=== PATIENT | male | born 1970 | race Caucasian/White ===

== ENCOUNTER 2017-12-12 08:05 | Observation (INO) | payer MEDICAID ==
[2017-12-12] MEDS: SOD CHLORIDE 0.9% 1,000 ML IV (08:58)
[2017-12-12] MEDS: NITROGLYCERIN (SL) 0.4 MG TAB SL (08:58)
[2017-12-12] MEDS: ASPIRIN 325 MG TAB PO (08:58)
[2017-12-12 09:14] LABS: ADD MAN DIFF? NO
[2017-12-12 09:16] LABS: WHITE BLOOD COUNT 7.1 10^3/ul (4.8-10.8)
[2017-12-12 09:16] LABS: BASOPHILS % 0.6 % (0.0-2.0); EOSINOPHILS % 0.4 % (0.0-7.0); HEMATOCRIT 44.8 % (42.0-52.0); HEMOGLOBIN 15.9 g/dl (14.0-18.0); LYMPHOCYTES # 2.1 10^3/ul (0.8-2.9); LYMPHOCYTES % 28.9 % (15.0-51.0); MEAN CORPUSCULAR HEMOGLOBIN 30.9 pg (29.0-33.0); MEAN CORPUSCULAR HGB CONC 35.5 g/dl (32.0-37.0); MEAN CORPUSCULAR VOLUME 87.2 fl (82.0-101.0); MONOCYTE # 0.5 10^3/ul (0.3-0.9); MONOCYTES % 6.5 % (0.0-11.0); NEUTROPHIL # 4.5 10^3/ul (1.6-7.5); NEUTROPHILS % 63.3 % (39.0-77.0); PLATELET COUNT 309 10^3/UL (140-415); RED BLOOD COUNT 5.14 10^6/ul (4.70-6.10); RED CELL DISTRIBUTION WIDTH 12.4 % (11.5-14.5)
[2017-12-12 09:38] LABS: ANION GAP 19 (8-16); BLOOD UREA NITROGEN 12 mg/dl (7-20); CARBON DIOXIDE 21 mmol/L (21-31); CHLORIDE 107 mmol/L (97-110); CREATININE 0.72 mg/dl (0.61-1.24); GLUCOSE 99 mg/dl (70-220); POTASSIUM 3.4 mmol/L (3.5-5.1); SODIUM 144 mmol/L (135-144)
[2017-12-12 09:49] LABS: TROPONIN-I 0.108 ng/ml (0.000-0.120)
[2017-12-12] MEDS ORDERED: ACETAMINOPHEN 325 MG TAB PO (12:00)
[2017-12-12] MEDS ORDERED: ONDANSETRON 4 MG INJ IV (12:00)
[2017-12-12 12:54] LABS: BARBITURATES Negative (NEGATIVE); BENZODIAZEPINES Negative (NEGATIVE); CANNABINOIDS Negative (NEGATIVE); COCAINE Negative (NEGATIVE); OPIATES Negative (NEGATIVE)
[2017-12-12 13:05] LABS: AMPHETAMINE/METHAMPHETAMINE POSITIVE (NEGATIVE)
[2017-12-12] MEDS ORDERED: NACL 0.9% 3 ML SYG IV (15:00)
[2017-12-12] MEDS ORDERED: HEPARIN 1000 UNITS/ML 10 ML INJ IV (15:00)
[2017-12-12 15:16] LABS: CREATINE KINASE 152 IU/L (23-200)
[2017-12-12 15:25] LABS: ADD MAN DIFF? NO
[2017-12-12 15:30] LABS: BASOPHILS % 0.4 % (0.0-2.0); EOSINOPHILS % 0.5 % (0.0-7.0); HEMATOCRIT 43.9 % (42.0-52.0); HEMOGLOBIN 15.3 g/dl (14.0-18.0); LYMPHOCYTES # 2.6 10^3/ul (0.8-2.9); LYMPHOCYTES % 33.1 % (15.0-51.0); MEAN CORPUSCULAR HEMOGLOBIN 30.9 pg (29.0-33.0); MEAN CORPUSCULAR HGB CONC 34.9 g/dl (32.0-37.0); MEAN CORPUSCULAR VOLUME 88.7 fl (82.0-101.0); MEAN PLATELET VOLUME 9.6 fl (7.4-10.4); MONOCYTE # 0.5 10^3/ul (0.3-0.9); MONOCYTES % 6.4 % (0.0-11.0); NEUTROPHIL # 4.7 10^3/ul (1.6-7.5); NEUTROPHILS % 59.5 % (39.0-77.0); PLATELET COUNT 272 10^3/UL (140-415); RED BLOOD COUNT 4.95 10^6/ul (4.70-6.10); RED CELL DISTRIBUTION WIDTH 12.6 % (11.5-14.5)
[2017-12-12 15:49] LABS: PROTIME 13.3 Sec (11.9-14.9)
[2017-12-12] MEDS: POTASSIUM CHLORIDE (SR) 20 MEQ TAB PO (15:50)
[2017-12-12] MEDS: METOPROLOL 25 MG TAB PO ×2 (15:53→20:20)
[2017-12-12 16:27] LABS: CREATINE KINASE 115 IU/L (23-200)
[2017-12-12 16:38] LABS: CK INDEX 0.9; CK-MB 1.03 ng/ml (0.0-2.4); TROPONIN-I 0.088 ng/ml (0.000-0.120)
[2017-12-12] MEDS: HEPARIN 1000 UNITS/ML 10 ML INJ IV (16:53)
[2017-12-12] MEDS: HEPARIN 25000 UNITS/250 ML 250 ML IV (16:55)
[2017-12-12] MEDS ORDERED: NITROGLYCERIN 0.3 MG/HR PATCH TRANSDERM (19:00)
[2017-12-12] MEDS: ATORVASTATIN 80 MG TAB PO (20:20)
[2017-12-12] MEDS ORDERED: NITROGLYCERIN 0.2 MG/HR PATCH TRANSDERM (20:36)
[2017-12-12] MEDS ORDERED: NITROGLYCERIN 0.1 MG/HR PATCH TRANSDERM (20:39)
[2017-12-12 21:40] LABS: CREATINE KINASE 115 IU/L (23-200)
[2017-12-12] MEDS: NITROGLYCERIN 0.1 MG/HR PATCH TRANSDERM (21:47)
[2017-12-12 21:51] LABS: CK INDEX 0.7; CK-MB 0.77 ng/ml (0.0-2.4); TROPONIN-I 0.037 ng/ml (0.000-0.120)
[2017-12-12 23:49] LABS: PARTIAL THROMBOPLASTIN TIME 43.1 Sec (25.0-35.0)
[2017-12-13] MEDS: HEPARIN 25000 UNITS/250 ML 250 ML IV ×2 (00:55→08:33)
[2017-12-13] MEDS: HEPARIN 1000 UNITS/ML 10 ML INJ IV (00:56)
[2017-12-13 07:29] LABS: ADD MAN DIFF? NO
[2017-12-13 07:32] LABS: WHITE BLOOD COUNT 8.8 10^3/ul (4.8-10.8)
[2017-12-13 07:32] LABS: BASOPHILS % 0.3 % (0.0-2.0); EOSINOPHILS # 0.1 10^3/ul (0.0-0.5); EOSINOPHILS % 1.5 % (0.0-7.0); HEMATOCRIT 42.5 % (42.0-52.0); HEMOGLOBIN 14.6 g/dl (14.0-18.0); LYMPHOCYTES # 2.2 10^3/ul (0.8-2.9); LYMPHOCYTES % 24.7 % (15.0-51.0); MEAN CORPUSCULAR HEMOGLOBIN 30.9 pg (29.0-33.0); MEAN CORPUSCULAR HGB CONC 34.4 g/dl (32.0-37.0); MONOCYTE # 0.5 10^3/ul (0.3-0.9); MONOCYTES % 5.7 % (0.0-11.0); NEUTROPHIL # 5.9 10^3/ul (1.6-7.5); NEUTROPHILS % 67.5 % (39.0-77.0); PLATELET COUNT 269 10^3/UL (140-415); RED BLOOD COUNT 4.72 10^6/ul (4.70-6.10); RED CELL DISTRIBUTION WIDTH 13.1 % (11.5-14.5)
[2017-12-13 07:50] LABS: HEMOGLOBIN A1C 5.6 % (0-5.9)
[2017-12-13 07:52] LABS: CREATINE KINASE 84 IU/L (23-200)
[2017-12-13 08:04] LABS: PARTIAL THROMBOPLASTIN TIME 105.9 Sec (25.0-35.0)
[2017-12-13 08:06] LABS: CK-MB 0.87 ng/ml (0.0-2.4)
[2017-12-13 08:09] LABS: TROPONIN-I 0.014 ng/ml (0.000-0.120)
[2017-12-13 08:42] LABS: ALANINE AMINOTRANSFERASE 47 IU/L (13-69); ALBUMIN/GLOBULIN RATIO 1.33; ALKALINE PHOSPHATASE 82 IU/L (42-121); ANION GAP 15 (8-16); ASPARTATE AMINO TRANSFERASE 37 IU/L (15-46); BILIRUBIN,INDIRECT 1.5 mg/dl (0-1.1); BILIRUBIN,TOTAL 1.5 mg/dl (0.2-1.3); BLOOD UREA NITROGEN 18 mg/dl (7-20); CARBON DIOXIDE 23 mmol/L (21-31); CHLORIDE 105 mmol/L (97-110); CHOL/HDL RATIO 4.8 RATIO; CHOLESTEROL 204 mg/dl (100-200); CREATININE 0.67 mg/dl (0.61-1.24); GLUCOSE 113 mg/dl (70-220); HDL CHOLESTEROL 42 mg/dl (27-67); LDL CHOLESTEROL,CALCULATED 140 mg/dl; POTASSIUM 4.3 mmol/L (3.5-5.1); SODIUM 139 mmol/L (135-144); TRIGLYCERIDES 112 mg/dl (0-149)
[2017-12-13 08:49] LABS: B-TYPE NATRIURETIC PEPTIDE 40 PG/ML (0-125)
[2017-12-13] MEDS: ASPIRIN 81 MG TAB PO ×2 (09:00→17:38)
[2017-12-13] MEDS: METOPROLOL 25 MG TAB PO (09:00)
[2017-12-13] MEDS: NITROGLYCERIN 0.3 MG/HR PATCH TRANSDERM (09:00)
[2017-12-13] MEDS: HYDROCODONE/APAP (5/325) TAB PO (11:29)
[2017-12-13] MEDS: REGADENOSON 0.4 MG/5 ML SYG (13:01)
[2017-12-13 15:33] LABS: PARTIAL THROMBOPLASTIN TIME 59.3 Sec (25.0-35.0)
[2017-12-13] MEDS ORDERED: ATORVASTATIN 20 MG TAB PO (21:00)
== END 2017-12-13 19:31 | disposition home or self-care (01) ==
LOC: E/R 08:05 → TEL 11:58
DX: R07.9 Chest pain, unspecified (principal); F15.10 Other stimulant abuse, uncomplicated; R94.39 Abnormal result of other cardiovascular function study; R00.0 Tachycardia, unspecified; E66.9 Obesity, unspecified; Z68.29 Body mass index [BMI] 29.0-29.9, adult
CPT/HCPCS: 36415; 71045; 78452; 80048; 80053; 80061; 80307; 82550; 82553; 83036; 83735; 83880; 84443; 84484; 85025; 85610; 85730; 93005; 93017; 93306; 96365; 96375; 99285-25; G0378

== ENCOUNTER 2017-12-25 21:30 | Emergency (ER) | payer MEDICAID ==
[2017-12-25 23:56] LABS: ADD MAN DIFF? NO
[2017-12-25 23:58] LABS: WHITE BLOOD COUNT 8.4 10^3/ul (4.8-10.8)
[2017-12-25 23:58] LABS: BASOPHIL # 0.1 10^3/ul (0.0-0.1); BASOPHILS % 0.6 % (0.0-2.0); EOSINOPHILS # 0.1 10^3/ul (0.0-0.5); EOSINOPHILS % 1.3 % (0.0-7.0); HEMATOCRIT 42.1 % (42.0-52.0); HEMOGLOBIN 14.5 g/dl (14.0-18.0); LYMPHOCYTES % 35.1 % (15.0-51.0); MEAN CORPUSCULAR HEMOGLOBIN 30.9 pg (29.0-33.0); MEAN CORPUSCULAR HGB CONC 34.4 g/dl (32.0-37.0); MEAN CORPUSCULAR VOLUME 89.6 fl (82.0-101.0); MEAN PLATELET VOLUME 10.1 fl (7.4-10.4); MONOCYTE # 0.8 10^3/ul (0.3-0.9); MONOCYTES % 9.2 % (0.0-11.0); NEUTROPHIL # 4.5 10^3/ul (1.6-7.5); NEUTROPHILS % 53.6 % (39.0-77.0); PLATELET COUNT 322 10^3/UL (140-415); RED CELL DISTRIBUTION WIDTH 12.8 % (11.5-14.5)
[2017-12-25] MEDS: ASPIRIN 81 MG TAB PO (23:58)
[2017-12-25] MEDS: LORAZEPAM 0.5 MG TAB PO (23:58)
[2017-12-26 00:18] LABS: ANION GAP 10 (8-16); BLOOD UREA NITROGEN 20 mg/dl (7-20); CALCIUM 9.3 mg/dl (8.4-10.2); CARBON DIOXIDE 28 mmol/L (21-31); CHLORIDE 108 mmol/L (97-110); CREATININE 0.85 mg/dl (0.61-1.24); GLUCOSE 97 mg/dl (70-220); POTASSIUM 3.7 mmol/L (3.5-5.1); SODIUM 142 mmol/L (135-144)
[2017-12-26 00:29] LABS: TROPONIN-I < 0.010 ng/ml (0.000-0.120)
[2017-12-26 03:29] LABS: TROPONIN-I < 0.010 ng/ml (0.000-0.120)
== END 2017-12-26 04:33 | disposition home or self-care (01) ==
LOC: E/R 21:30
DX: R07.9 Chest pain, unspecified (principal); F41.9 Anxiety disorder, unspecified; R40.2142 Coma scale, eyes open, spontaneous, at arrival to emergency department; R40.2252 Coma scale, best verbal response, oriented, at arrival to emergency department; R40.2362 Coma scale, best motor response, obeys commands, at arrival to emergency department
CPT/HCPCS: 36415; 71045; 80048; 84484; 85025; 93005; 99285-25

== ENCOUNTER 2018-07-30 23:36 | Emergency (ER) | payer MEDICAID ==
[2018-07-31] MEDS: METOCLOPRAMIDE 10 MG INJ IV (01:43)
[2018-07-31] MEDS: DIPHENHYDRAMINE 50 MG INJ IV ×2 (01:43→02:07)
[2018-07-31] MEDS: SOD CHLORIDE 0.9% 500 ML IV (01:43)
[2018-07-31 01:48] LABS: ADD MAN DIFF? NO
[2018-07-31 01:51] LABS: BASOPHILS % 0.5 % (0.0-2.0); EOSINOPHILS # 0.1 10^3/ul (0.0-0.5); EOSINOPHILS % 1.7 % (0.0-7.0); HEMATOCRIT 45.6 % (42.0-52.0); HEMOGLOBIN 15.8 g/dl (14.0-18.0); LYMPHOCYTES # 2.9 10^3/ul (0.8-2.9); LYMPHOCYTES % 35.4 % (15.0-51.0); MEAN CORPUSCULAR HEMOGLOBIN 30.7 pg (29.0-33.0); MEAN CORPUSCULAR HGB CONC 34.6 g/dl (32.0-37.0); MEAN CORPUSCULAR VOLUME 88.5 fl (82.0-101.0); MEAN PLATELET VOLUME 10.2 fl (7.4-10.4); MONOCYTE # 0.7 10^3/ul (0.3-0.9); NEUTROPHIL # 4.4 10^3/ul (1.6-7.5); NEUTROPHILS % 54.2 % (39.0-77.0); PLATELET COUNT 295 10^3/UL (140-415); RED BLOOD COUNT 5.15 10^6/ul (4.70-6.10); RED CELL DISTRIBUTION WIDTH 12.2 % (11.5-14.5)
[2018-07-31 01:51] LABS: WHITE BLOOD COUNT 8.1 10^3/ul (4.8-10.8)
[2018-07-31 01:58] LABS: ADD UMIC YES; UR ASCORBIC ACID NEGATIVE (NEGATIVE); UR BILIRUBIN (Dip) NEGATIVE (NEGATIVE); UR BLOOD (Dip) 1+ mg/dL (NEGATIVE); UR CLARITY CLEAR (CLEAR); UR COLOR YELLOW (YELLOW); UR GLUCOSE (Dip) NEGATIVE (NEGATIVE); UR KETONES (Dip) NEGATIVE (NEGATIVE); UR LEUKOCYTE ESTERASE (Dip) NEGATIVE Leu/ul (NEGATIVE); UR NITRITE (Dip) NEGATIVE (NEGATIVE); UR RBC 1 /HPF (0-5); UR SPECIFIC GRAVITY (Dip) 1.024 (1.003-1.030); UR TOTAL PROTEIN (Dip) NEGATIVE (NEGATIVE); UR UROBILINOGEN (Dip) NEGATIVE (NEGATIVE); UR WBC 0 /HPF (0-5)
[2018-07-31 02:09] LABS: INR 0.88; PT RATIO 0.9
[2018-07-31 02:10] LABS: ALANINE AMINOTRANSFERASE 55 IU/L (13-69); ALBUMIN 4.4 g/dl (3.3-4.9); ALBUMIN/GLOBULIN RATIO 1.29; ALKALINE PHOSPHATASE 85 IU/L (42-121); ANION GAP 7 (5-13); ASPARTATE AMINO TRANSFERASE 40 IU/L (15-46); BILIRUBIN,INDIRECT 0.7 mg/dl (0-1.1); BILIRUBIN,TOTAL 0.7 mg/dl (0.2-1.3); BLOOD UREA NITROGEN 18 mg/dl (7-20); CALCIUM 9.4 mg/dl (8.4-10.2); CARBON DIOXIDE 29 mmol/L (21-31); CHLORIDE 105 mmol/L (97-110); CREATININE 0.81 mg/dl (0.61-1.24); Estimated GFR > 60 mL/min (>60); GLUCOSE 110 mg/dl (70-220); PARTIAL THROMBOPLASTIN TIME 26.9 Sec (23.0-35.0); SODIUM 141 mmol/L (135-144); TOTAL PROTEIN 7.8 g/dl (6.1-8.1)
[2018-07-31 02:21] LABS: TROPONIN-I < 0.012 ng/ml (0.000-0.120)
[2018-07-31 02:46] LABS: ETHANOL < 10.0 mg/dl (0-0)
[2018-07-31] MEDS: DEXAMETHASONE 10 MG/ML 1 ML INJ IV (03:43)
[2018-07-31] MEDS: KETOROLAC 30 MG INJ IV (03:43)
== END 2018-07-31 04:47 | disposition home or self-care (01) ==
LOC: FTE 23:36 → E/R 07-31 04:47
DX: R51 Headache (principal); R11.2 Nausea with vomiting, unspecified; R42 Dizziness and giddiness; R07.9 Chest pain, unspecified
CPT/HCPCS: 36415; 70450; 71045; 80053; 80307; 81001; 84484; 85025; 85610; 85730; 87400; 93005; 96374; 96375; 96376; 99285-25

== ENCOUNTER 2018-10-07 19:15 | Emergency (ER) | payer MEDICAID ==
[2018-10-07 23:11] LABS: ADD MAN DIFF? NO
[2018-10-07 23:14] LABS: BASOPHIL # 0.1 10^3/ul (0.0-0.1); BASOPHILS % 0.6 % (0.0-2.0); EOSINOPHILS # 0.3 10^3/ul (0.0-0.5); EOSINOPHILS % 3.7 % (0.0-7.0); HEMATOCRIT 44.9 % (42.0-52.0); HEMOGLOBIN 15.4 g/dl (14.0-18.0); LYMPHOCYTES # 3.7 10^3/ul (0.8-2.9); LYMPHOCYTES % 43.2 % (15.0-51.0); MEAN CORPUSCULAR HEMOGLOBIN 30.4 pg (29.0-33.0); MEAN CORPUSCULAR HGB CONC 34.3 g/dl (32.0-37.0); MEAN CORPUSCULAR VOLUME 88.7 fl (82.0-101.0); MEAN PLATELET VOLUME 10.3 fl (7.4-10.4); MONOCYTE # 0.7 10^3/ul (0.3-0.9); MONOCYTES % 8.1 % (0.0-11.0); NEUTROPHIL # 3.8 10^3/ul (1.6-7.5); NEUTROPHILS % 44.3 % (39.0-77.0); PLATELET COUNT 281 10^3/UL (140-415); RED BLOOD COUNT 5.06 10^6/ul (4.70-6.10); RED CELL DISTRIBUTION WIDTH 12.6 % (11.5-14.5)
[2018-10-07 23:14] LABS: WHITE BLOOD COUNT 8.5 10^3/ul (4.8-10.8)
[2018-10-07] MEDS: KETOROLAC 15 MG INJ IV (23:17)
[2018-10-07 23:32] LABS: ANION GAP 8 (5-13); CARBON DIOXIDE 29 mmol/L (21-31); CHLORIDE 105 mmol/L (97-110); POTASSIUM 3.7 mmol/L (3.5-5.1); SODIUM 142 mmol/L (135-144)
[2018-10-07 23:44] LABS: TROPONIN-I < 0.012 ng/ml (0.000-0.120)
[2018-10-08] LABS: BLOOD UREA NITROGEN 20 mg/dl (7-20); CALCIUM 9.7 mg/dl (8.4-10.2); CREATININE 0.65 mg/dl (0.61-1.24); Estimated GFR > 60 mL/min (>60); GLUCOSE 94 mg/dl (70-220)
== END 2018-10-08 02:12 | disposition home or self-care (01) ==
LOC: E/R 19:15
DX: R07.9 Chest pain, unspecified (principal); M25.511 Pain in right shoulder
CPT/HCPCS: 36415; 71045; 80048; 84484; 85025; 93005; 96374; 99285-25